=== PATIENT | male | born 1940 | race Caucasian/White ===

== ENCOUNTER → 2020-03-30 | Outpatient (CLI) | payer MEDICARE ==
[2020-03-31 14:11] LABS: RHEUMATOID ARTHRITIS FACTOR <10.0 IU/mL (0.0-13.9)
[2020-03-31 23:11] LABS: CCP ANTIBODIES IGG/IGA 7 units (0-19)
== END ==
LOC: LAB 11:25
PROVIDERS: Internal Medicine
DX: M25.60 Stiffness of unspecified joint, not elsewhere classified (principal); M10.9 Gout, unspecified
CPT/HCPCS: 36415; 83520; 84550; 85652; 86140; 86200; 86431

== ENCOUNTER → 2020-03-30 | Outpatient (CLI) | payer MEDICARE | LOC: EXRD 10:45 | DX: M25.642 Stiffness of left hand, not elsewhere classified (principal); M25.641 Stiffness of right hand, not elsewhere classified; M19.042 Primary osteoarthritis, left hand; M19.041 Primary osteoarthritis, right hand | CPT/HCPCS: 36415; 73130; 83520; 84550; 85652; 86140; 86200; 86431 ==

== ENCOUNTER → 2021-04-09 | Outpatient (CLI) | payer MEDICARE | LOC: RAD 15:39 | DX: Z51.81 Encounter for therapeutic drug level monitoring (principal); Z79.899 Other long term (current) drug therapy | CPT/HCPCS: 71046 ==

== ENCOUNTER → 2021-04-28 | Outpatient (CLI) | payer MEDICARE ==
[~2021-04-28] MED LIST: ALLOPURINOL300 MG PO; ATORVASTATIN CA20 MG PO; COLCRYS0.6 MG PO; CYMBALTA30 MG PO; FOLIC ACID 1 MG1 MG PO; METOPROLOL TART50 MG PO; PACERONE200 MG PO; PREDNISONE2.5 MG PO; TIZANIDINE HCL2 MG PO; ULTRAM50 MG PO; VITAMIN D3125 MCG PO; [UNRECOGNIZED DRUG - CODE] PO
== END ==
LOC: OPSV2 11:00
DX: Z01.810 Encounter for preprocedural cardiovascular examination (principal); K40.90 Unilateral inguinal hernia, without obstruction or gangrene, not specified as recurrent; R00.1 Bradycardia, unspecified; I11.9 Hypertensive heart disease without heart failure; R94.31 Abnormal electrocardiogram [ECG] [EKG]
CPT/HCPCS: 93005

== ENCOUNTER → 2021-05-31 | Day surgery (SDC) | payer MEDICARE ==
[~2021-05-31] MED LIST changes: +COLACE100 MG PO; +HYDROCODON-ACE1 EAC2 PO
== END | disposition home or self-care (01) ==
LOC: OR 05:46
PROVIDERS: Surgery
PROC: 0DJD8ZZ Inspection of Lower Intestinal Tract, Via Natural or Artificial Opening Endoscopic (ICD-10-PCS; principal; 2021-05-31 07:30)
DX: R19.5 Other fecal abnormalities (principal); Z20.822 Contact with and (suspected) exposure to COVID-19; I13.0 Hypertensive heart and chronic kidney disease with heart failure and stage 1 through stage 4 chronic kidney disease, or unspecified chronic kidney disease; I50.9 Heart failure, unspecified; N18.9 Chronic kidney disease, unspecified; I48.91 Unspecified atrial fibrillation; E78.5 Hyperlipidemia, unspecified; K21.9 Gastro-esophageal reflux disease without esophagitis; M81.0 Age-related osteoporosis without current pathological fracture; M54.50 Low back pain, unspecified; D61.818 Other pancytopenia; D50.9 Iron deficiency anemia, unspecified; K40.90 Unilateral inguinal hernia, without obstruction or gangrene, not specified as recurrent; C61 Malignant neoplasm of prostate; M06.09 Rheumatoid arthritis without rheumatoid factor, multiple sites; M19.90 Unspecified osteoarthritis, unspecified site; M1A.9XX0 Chronic gout, unspecified, without tophus (tophi); I25.2 Old myocardial infarction; Z79.52 Long term (current) use of systemic steroids; Z79.899 Other long term (current) drug therapy
CPT/HCPCS: J2704; J7030